=== PATIENT | female | born 1970 | race Caucasian/White ===

== ENCOUNTER 2017-10-03 06:26 | Emergency (ER) | payer OTHER, MEDICAID ==
[~2017-10-03] VITALS: Ht 152.4 cm; Wt 83.0 kg
[~2017-10-03 06:26] MED LIST: ACET325T14 PO; ALLERGY MED PO; AMBR5TAB3 PO; MULT-516 PO; OMEG-14 PO; OMEP-110 PO; POTA10TA11 PO; SPIR25TA PO; TADA20TA33 PO; TORS20TA PO
[2017-10-03] MEDS ORDERED: SODIUM CHLORIDE FLUSH 10ML SYR IVF ONE (07:30)
[2017-10-03 07:31] LABS: CULTURE INDICATED? NO; MICROSCOPIC NOT IND
[2017-10-03 07:51] LABS: BASOPHILS # (AUTO) 0.08 x10^3/uL (0-0.1); BASOPHILS % (AUTO) 1 % (0-1); EOSINOPHILS # (AUTO) 0.15 x10^3/uL (0-0.4); EOSINOPHILS % (AUTO) 3 % (1-7); LYMPHOCYTES # (AUTO) 2.28 x10^3/uL (1-3.4); LYMPHOCYTES % (AUTO) 37 % (22-44); MD NO; MEAN CORPUSCULAR HEMOGLOBIN 28.5 pg (27.0-34.8); MEAN CORPUSCULAR HGB CONC 33.1 g/dL (32.4-35.8); MEAN CORPUSCULAR VOLUME 86.1 fL (80-100); MEAN PLATELET VOLUME 7.4 fL (7.4-10.4); MONOCYTES # (AUTO) 0.37 x10^3/uL (0.2-0.8); MONOCYTES % (AUTO) 6 % (2-9); NEUTROPHILS # (AUTO) 3.37 x10^3/uL (1.8-6.8); NEUTROPHILS % (AUTO) 54 % (42-75); PLATELET COUNT 186 x10^3/uL (130-400); RED BLOOD COUNT 4.85 x10^6/uL (3.82-5.3); RED CELL DISTRIBUTION WIDTH 15.5 % (9.6-15.2)
[2017-10-03 08:02] LABS: ALBUMIN 3.9 g/dL (3.4-5.0); ANION GAP 6 mmol/L (5-15); CALCIUM 8.8 mg/dL (8.5-10.1); CHLORIDE 109 mmol/L (98-107)
[2017-10-03 08:07] LABS: ALANINE AMINOTRANSFERASE 20 U/L (12-78); ALKALINE PHOSPHATASE 48 U/L (45-117); BILIRUBIN,TOTAL 0.4 mg/dL (0.2-1.0); CREATININE 0.63 mg/dL (0.55-1.02); FREE T4 (FREE THYROXINE) 1.02 ng/dL (0.76-1.46); TOTAL PROTEIN 7.7 g/dL (6.4-8.2); TROPONIN I 0.027 ng/mL (0.000-0.045)
[2017-10-03 10:51] VITALS: BP 99/55
== END 2017-10-03 10:56 | disposition home or self-care (01) ==
LOC: ED 09:27
DX: R00.2 Palpitations (principal); J18.0 Bronchopneumonia, unspecified organism; I11.0 Hypertensive heart disease with heart failure; I50.9 Heart failure, unspecified; I27.20 Pulmonary hypertension, unspecified
CPT/HCPCS: 36415; 71045; 80053; 81003; 83735; 83880; 84439; 84443; 84484; 85025; 93005; 99285

== ENCOUNTER → 2019-08-30 | Outpatient (CLI) | payer OTHER, MEDICAID ==
[~2019-08-30] MED LIST changes: +AMBR10TA3 PO; +ASCO1CAP2 PO; +CO Q PO; +MAGN400O7 PO; +POLY119P3 PO; +PSYL1CAP5 PO; +TADA20TA47 PO; +TURMERIC PO; +VITA1CAP5 PO; +[UNRECOGNIZED DRUG - OTHER] PO
[2019-08-30 16:30] LABS: BASOPHILS # (AUTO) 0.03 x10^3/uL (0-0.1); BASOPHILS % (AUTO) 1 % (0-1); EOSINOPHILS # (AUTO) 0.11 x10^3/uL (0-0.4); EOSINOPHILS % (AUTO) 2 % (1-7); LYMPHOCYTES # (AUTO) 1.96 x10^3/uL (1-3.4); LYMPHOCYTES % (AUTO) 32 % (22-44); MD NO; MEAN CORPUSCULAR HEMOGLOBIN 27.5 pg (27.0-34.8); MEAN CORPUSCULAR HGB CONC 31.8 g/dL (32.4-35.8); MEAN CORPUSCULAR VOLUME 86.3 fL (80-100); MEAN PLATELET VOLUME 7.4 fL (7.4-10.4); MONOCYTES # (AUTO) 0.41 x10^3/uL (0.2-0.8); MONOCYTES % (AUTO) 7 % (2-9); NEUTROPHILS # (AUTO) 3.72 x10^3/uL (1.8-6.8); NEUTROPHILS % (AUTO) 60 % (42-75); PLATELET COUNT 210 x10^3/uL (130-400); RED BLOOD COUNT 5.02 x10^6/uL (3.82-5.3); RED CELL DISTRIBUTION WIDTH 17.1 % (9.6-15.2)
[2019-08-30 16:37] LABS: MICROSCOPIC AUTO
[2019-08-30 16:41] LABS: CULTURE INDICATED? YES
[2019-08-30 16:41] LABS: ALANINE AMINOTRANSFERASE 30 U/L (12-78); ALBUMIN 3.9 g/dL (3.4-5.0); ANION GAP 4 mmol/L (5-15); CALCIUM 9.1 mg/dL (8.5-10.1); CHLORIDE 107 mmol/L (98-107); CREATININE 0.76 mg/dL (0.55-1.02)
[2019-08-30 16:44] LABS: ALKALINE PHOSPHATASE 65 U/L (45-117); BILIRUBIN,TOTAL 0.4 mg/dL (0.2-1.0); TOTAL PROTEIN 7.9 g/dL (6.4-8.2)
== END | disposition home or self-care (01) ==
LOC: STAR 15:16
PROVIDERS: ATTEND Obstetrics & Gynecology
DX: Z01.818 Encounter for other preprocedural examination (principal); N83.209 Unspecified ovarian cyst, unspecified side; R10.2 Pelvic and perineal pain; I45.2 Bifascicular block
CPT/HCPCS: 36415; 80053; 81001; 85025; 87086; 93005

== ENCOUNTER 2019-09-06 07:57 | Inpatient (IN) | payer OTHER, MEDICAID ==
[~2019-09-06] VITALS: Ht 152.4 cm; Wt 92.0 kg
[~2019-09-06 07:57] MED LIST changes: +BUPIVACAINE/PF 0.25% ONE; +EPINEPHRINE 1 MG/ML, 1ML ONE; +FENTANYL PF 250 MCG/5ML ONE; +FLUORESCEIN SODIUM 500 MG/5 ML ONE; +MIDAZOLAM 1 MG/ML, 2ML ONE; +VASOPRESSIN 20 UNIT/ML, 1ML ONE
[2019-09-06] MEDS ORDERED: LACTATED RINGERS 1,000 ML IV SCH (08:41)
[2019-09-06] MEDS ORDERED: MEPERIDINE/PF 100 MG/ML ONE (08:44)
[2019-09-06] MEDS ORDERED: PROPOFOL 10 MG/ML, 20ML ONE (08:46)
[2019-09-06] MEDS ORDERED: LIDOCAINE-MPF 2% ,5ML ONE (08:46)
[2019-09-06] MEDS ORDERED: ROCURONIUM 10MG/ML,5ML ONE ×2 (08:46→12:37)
[2019-09-06] MEDS ORDERED: SUGAMMADEX 200 MG/2 ML IVPush ONE (08:46)
[2019-09-06] MEDS ORDERED: DEXAMETHASONE 4 MG/ML, 1ML ONE (08:46)
[2019-09-06] MEDS ORDERED: ONDANSETRON 2MG/ML, 2ML ONE (08:46)
[2019-09-06 08:55] VITALS: BP 96/62
[2019-09-06 09:00] LABS: HCG UR SG 1.023 (1.003-1.030)
[2019-09-06] MEDS ORDERED: MILRINONE 1 MG/ML, 10ML IV ONE (10:58)
[2019-09-06] MEDS ORDERED: NOREPINEPHRINE 1 MG/ML, 4ML ONE (10:59)
[2019-09-06] MEDS ORDERED: PHENYLEPHRINE 10 MG/ML ONE (11:12)
[2019-09-06] MEDS ORDERED: CEFOTETAN 1 GM ONE (11:12)
[2019-09-06] MEDS ORDERED: VASOPRESSIN 20 UNIT/ML, 1ML ONE ×2 (12:08→12:35)
[2019-09-06] MEDS ORDERED: FENTANYL PF 100 MCG/2ML IV PRN (12:30)
[2019-09-06] MEDS ORDERED: HYDROmorphone 2 MG/ML, 1ML IVPush PRN ×2 (12:30→16:00)
[2019-09-06] MEDS ORDERED: MEPERIDINE/PF 25MG/ML,1ML IVPush PRN (12:30)
[2019-09-06] MEDS ORDERED: OXYcodone 5 MG/5 ML ORAL.SOL UDC PO PRN ×3 (12:30→18:00)
[2019-09-06] MEDS ORDERED: PROMETHAZINE 25 MG/ML, 1ML IV PRN (12:30)
[2019-09-06] MEDS ORDERED: GLYCOPYRROLATE 0.2MG/1ML, 5ML ONE (12:45)
[2019-09-06] MEDS ORDERED: PROMETHAZINE 25 MG/ML, 1ML ONE (16:09)
[2019-09-06] MEDS ORDERED: HYDROmorphone 1 MG/ML, 1ML INJ ONE (16:11)
[2019-09-06] MEDS ORDERED: ONDANSETRON 2MG/ML, 2ML IV PRN (18:00)
[2019-09-06] MEDS ORDERED: ACETAMINOPHEN 650 MG SUPP PR PRN (18:00)
[2019-09-06 19:46] VITALS: BP 106/53
[2019-09-06] MEDS: SIMETHICONE 80 MG CHEW TAB PO SCH (20:24)
[2019-09-06] MEDS: DOCUSATE 100 MG CAPSULE PO SCH (20:24)
[2019-09-06] MEDS: D5%-0.45NACL+KCL 20MEQ 1,000 ML IV SCH (20:25)
[2019-09-06] MEDS: ACETAMINOPHEN 325 MG TABLET PO PRN (20:28)
[2019-09-06] MEDS ORDERED: ZOLPIDEM 5MG TABLET PO PRN (21:00)
[2019-09-06 21:19] VITALS: BP_SYST 79; BP_DIAS 40; BP_DIAS 44
[2019-09-06 21:40] VITALS: BP 89/44
[2019-09-06] MEDS ORDERED: SODIUM CHLORIDE 0.9% 1,000 ML IV SCH ×2 (22:00→22:06)
[2019-09-06 22:40] LABS: BASOPHILS # (AUTO) 0.01 x10^3/uL (0-0.1); BASOPHILS % (AUTO) 0 % (0-1); EOSINOPHILS % (AUTO) 0 % (1-7); LYMPHOCYTES # (AUTO) 0.56 x10^3/uL (1-3.4); LYMPHOCYTES % (AUTO) 5 % (22-44); MD NO; MEAN CORPUSCULAR HEMOGLOBIN 27.9 pg (27.0-34.8); MEAN CORPUSCULAR HGB CONC 32.5 g/dL (32.4-35.8); MEAN CORPUSCULAR VOLUME 85.8 fL (80-100); MEAN PLATELET VOLUME 7.7 fL (7.4-10.4); MONOCYTES # (AUTO) 0.25 x10^3/uL (0.2-0.8); MONOCYTES % (AUTO) 2 % (2-9); NEUTROPHILS # (AUTO) 10.54 x10^3/uL (1.8-6.8); NEUTROPHILS % (AUTO) 93 % (42-75); PLATELET COUNT 168 x10^3/uL (130-400); RED CELL DISTRIBUTION WIDTH 17.2 % (9.6-15.2)
[2019-09-06 22:47] VITALS: BP 101/56
[2019-09-06] MEDS ORDERED: CEFOTETAN PMX 1GM/50ML 50 ML IVPB ONE (23:30)
[2019-09-07] VITALS (8 sets, daily range): BP systolic 85–103; BP diastolic 42–61
[2019-09-07] MEDS ORDERED: SODIUM CHLORIDE 0.9% 1,000 ML IV SCH (03:30)
[2019-09-07 04:20] LABS: BASOPHILS % (AUTO) 0 % (0-1); EOSINOPHILS % (AUTO) 0 % (1-7); LYMPHOCYTES # (AUTO) 0.73 x10^3/uL (1-3.4); LYMPHOCYTES % (AUTO) 6 % (22-44); MD NO; MEAN CORPUSCULAR HEMOGLOBIN 27.4 pg (27.0-34.8); MEAN CORPUSCULAR HGB CONC 32.2 g/dL (32.4-35.8); MEAN PLATELET VOLUME 7.7 fL (7.4-10.4); MONOCYTES # (AUTO) 0.74 x10^3/uL (0.2-0.8); MONOCYTES % (AUTO) 6 % (2-9); NEUTROPHILS % (AUTO) 88 % (42-75); PLATELET COUNT 173 x10^3/uL (130-400); RED BLOOD COUNT 4.18 x10^6/uL (3.82-5.3); RED CELL DISTRIBUTION WIDTH 17.3 % (9.6-15.2)
[2019-09-07] MEDS ORDERED: SODIUM CHLORIDE 0.9% 1,000ML IVBOLUS ONE (05:30)
[2019-09-07 05:48] LABS: FREE T4 (FREE THYROXINE) 1.14 ng/dL (0.76-1.46)
[2019-09-07 06:54] LABS: MICROSCOPIC INDICATED
[2019-09-07] MEDS: D5%-0.45NACL+KCL 20MEQ 1,000 ML IV SCH ×2 (07:10→16:47)
[2019-09-07 08:14] LABS: ALBUMIN 2.9 g/dL (3.4-5.0); ANION GAP 6 mmol/L (5-15); CALCIUM 7.6 mg/dL (8.5-10.1); CHLORIDE 112 mmol/L (98-107)
[2019-09-07 08:19] LABS: ALANINE AMINOTRANSFERASE 22 U/L (12-78); ALKALINE PHOSPHATASE 41 U/L (45-117); BILIRUBIN,TOTAL 0.4 mg/dL (0.2-1.0); CREATININE 0.72 mg/dL (0.55-1.02); TOTAL PROTEIN 5.7 g/dL (6.4-8.2)
[2019-09-07] MEDS: SIMETHICONE 80 MG CHEW TAB PO SCH ×3 (08:42→20:47)
[2019-09-07] MEDS: DOCUSATE 100 MG CAPSULE PO SCH ×2 (08:42→20:47)
[2019-09-07] MEDS: TORSEMIDE 20 MG TABLET PO SCH (08:42)
[2019-09-07] MEDS: ACETAMINOPHEN 325 MG TABLET PO PRN (08:42)
[2019-09-07 13:36] LABS: BASOPHILS # (AUTO) 0.01 x10^3/uL (0-0.1); BASOPHILS % (AUTO) 0 % (0-1); EOSINOPHILS # (AUTO) 0.01 x10^3/uL (0-0.4); EOSINOPHILS % (AUTO) 0 % (1-7); LYMPHOCYTES # (AUTO) 1.24 x10^3/uL (1-3.4); LYMPHOCYTES % (AUTO) 10 % (22-44); MD NO; MEAN CORPUSCULAR HEMOGLOBIN 27.4 pg (27.0-34.8); MEAN CORPUSCULAR HGB CONC 32.2 g/dL (32.4-35.8); MEAN CORPUSCULAR VOLUME 85.1 fL (80-100); MEAN PLATELET VOLUME 7.4 fL (7.4-10.4); MONOCYTES # (AUTO) 0.62 x10^3/uL (0.2-0.8); MONOCYTES % (AUTO) 5 % (2-9); NEUTROPHILS # (AUTO) 11.01 x10^3/uL (1.8-6.8); NEUTROPHILS % (AUTO) 86 % (42-75); PLATELET COUNT 188 x10^3/uL (130-400); RED CELL DISTRIBUTION WIDTH 17.2 % (9.6-15.2)
[2019-09-07] MEDS: OXYcodone/APAP 5/325MG TABLET PO PRN (17:36)
[2019-09-08 01:33] VITALS: BP 100/53
[2019-09-08 05:42] LABS: ANION GAP 6 mmol/L (5-15); CALCIUM 8.3 mg/dL (8.5-10.1); CHLORIDE 107 mmol/L (98-107)
[2019-09-08 05:43] LABS: BASOPHILS # (AUTO) 0.02 x10^3/uL (0-0.1); BASOPHILS % (AUTO) 0 % (0-1); EOSINOPHILS # (AUTO) 0.09 x10^3/uL (0-0.4); EOSINOPHILS % (AUTO) 1 % (1-7); LYMPHOCYTES # (AUTO) 1.43 x10^3/uL (1-3.4); LYMPHOCYTES % (AUTO) 13 % (22-44); MD NO; MEAN CORPUSCULAR HEMOGLOBIN 27.7 pg (27.0-34.8); MEAN CORPUSCULAR HGB CONC 32.2 g/dL (32.4-35.8); MEAN PLATELET VOLUME 7.8 fL (7.4-10.4); MONOCYTES # (AUTO) 0.62 x10^3/uL (0.2-0.8); MONOCYTES % (AUTO) 6 % (2-9); NEUTROPHILS # (AUTO) 8.81 x10^3/uL (1.8-6.8); NEUTROPHILS % (AUTO) 80 % (42-75); PLATELET COUNT 169 x10^3/uL (130-400); RED BLOOD COUNT 4.23 x10^6/uL (3.82-5.3); RED CELL DISTRIBUTION WIDTH 17.3 % (9.6-15.2)
[2019-09-08 05:47] LABS: ALANINE AMINOTRANSFERASE 19 U/L (12-78); ALKALINE PHOSPHATASE 43 U/L (45-117); BILIRUBIN,TOTAL 0.5 mg/dL (0.2-1.0); CREATININE 0.66 mg/dL (0.55-1.02); TOTAL PROTEIN 6.6 g/dL (6.4-8.2)
[2019-09-08] MEDS ORDERED: OMNIPAQUE 350 MG/ML, 100ML BOTTLE ONE (07:12)
[2019-09-08] MEDS: D5%-0.45NACL+KCL 20MEQ 1,000 ML IV SCH (07:20)
[2019-09-08 07:42] VITALS: BP 101/66
[2019-09-08] MEDS: DOCUSATE 100 MG CAPSULE PO SCH ×2 (08:17→20:56)
[2019-09-08] MEDS: TORSEMIDE 20 MG TABLET PO SCH (08:17)
[2019-09-08] MEDS: SIMETHICONE 80 MG CHEW TAB PO SCH ×3 (08:17→20:56)
[2019-09-08] MEDS ORDERED: POTASSIUM CHLORIDE 20 MEQ TAB.ER.PRT PO SCH (08:30)
[2019-09-08 12:45] VITALS: BP 91/55
[2019-09-08] MEDS: OXYcodone/APAP 5/325MG TABLET PO PRN (12:46)
[2019-09-08 19:01] VITALS: BP 98/65
[2019-09-09 00:28] VITALS: BP 96/60
[2019-09-09 06:28] LABS: BASOPHILS # (AUTO) 0.08 x10^3/uL (0-0.1); BASOPHILS % (AUTO) 1 % (0-1); EOSINOPHILS # (AUTO) 0.08 x10^3/uL (0-0.4); EOSINOPHILS % (AUTO) 1 % (1-7); LYMPHOCYTES % (AUTO) 21 % (22-44); MD NO; MEAN CORPUSCULAR HEMOGLOBIN 27.6 pg (27.0-34.8); MEAN CORPUSCULAR VOLUME 86.3 fL (80-100); MEAN PLATELET VOLUME 7.9 fL (7.4-10.4); MONOCYTES # (AUTO) 0.56 x10^3/uL (0.2-0.8); MONOCYTES % (AUTO) 6 % (2-9); NEUTROPHILS # (AUTO) 6.97 x10^3/uL (1.8-6.8); NEUTROPHILS % (AUTO) 71 % (42-75); PLATELET COUNT 163 x10^3/uL (130-400); RED BLOOD COUNT 4.38 x10^6/uL (3.82-5.3); RED CELL DISTRIBUTION WIDTH 17.4 % (9.6-15.2)
[2019-09-09 06:36] LABS: CHLORIDE 104 mmol/L (98-107)
[2019-09-09 06:41] LABS: ALANINE AMINOTRANSFERASE 20 U/L (12-78); ALKALINE PHOSPHATASE 48 U/L (45-117); ANION GAP 5 mmol/L (5-15); BILIRUBIN,TOTAL 0.6 mg/dL (0.2-1.0); CALCIUM 8.7 mg/dL (8.5-10.1); CREATININE 0.57 mg/dL (0.55-1.02); TOTAL PROTEIN 6.9 g/dL (6.4-8.2)
[2019-09-09 08:46] VITALS: BP 106/69
[2019-09-09] MEDS: POTASSIUM CHLORIDE 20 MEQ TAB.ER.PRT PO SCH ×2 (08:50→08:56)
[2019-09-09] MEDS: SIMETHICONE 80 MG CHEW TAB PO SCH (08:50)
[2019-09-09] MEDS: DOCUSATE 100 MG CAPSULE PO SCH (08:51)
[2019-09-09] MEDS: TORSEMIDE 20 MG TABLET PO SCH (08:51)
[2019-09-09 14:12] VITALS: BP 97/65
[2019-09-09] MEDS: OXYcodone/APAP 5/325MG TABLET PO PRN (14:55)
== END 2019-09-09 16:29 | disposition home or self-care (01) | DRG 742 ==
LOC: OUT 07:57 → 4NE 17:33 → OUT 17:36 → 4NE 17:36 → 5SO 09-07 04:16 → DCLOUNGE 09-09 16:10
PROVIDERS: ADMIT Obstetrics & Gynecology; ATTEND Obstetrics & Gynecology
PROC: 0DQ80ZZ Repair Small Intestine, Open Approach (ICD-10-PCS; 2019-09-06)
PROC: 0UT70ZZ Resection of Bilateral Fallopian Tubes, Open Approach (ICD-10-PCS; 2019-09-06)
PROC: 0UT00ZZ Resection of Right Ovary, Open Approach (ICD-10-PCS; 2019-09-06)
PROC: 0DNE0ZZ Release Large Intestine, Open Approach (ICD-10-PCS; 2019-09-06)
PROC: 0DNW0ZZ Release Peritoneum, Open Approach (ICD-10-PCS; 2019-09-06)
PROC: 0UB10ZZ Excision of Left Ovary, Open Approach (ICD-10-PCS; 2019-09-06)
PROC: 0TJB8ZZ Inspection of Bladder, Via Natural or Artificial Opening Endoscopic (ICD-10-PCS; 2019-09-06)
PROC: 03HY32Z Insertion of Monitoring Device into Upper Artery, Percutaneous Approach (ICD-10-PCS; 2019-09-06)
PROC: 0UT90ZZ Resection of Uterus, Open Approach (ICD-10-PCS; principal; 2019-09-06 10:00)
DX: N80.1 Endometriosis of ovary (principal); S36.408A Unspecified injury of other part of small intestine, initial encounter; N83.299 Other ovarian cyst, unspecified side; E66.01 Morbid (severe) obesity due to excess calories; E87.6 Hypokalemia; Z68.39 Body mass index [BMI] 39.0-39.9, adult; G47.33 Obstructive sleep apnea (adult) (pediatric); I11.0 Hypertensive heart disease with heart failure; I27.20 Pulmonary hypertension, unspecified; K21.9 Gastro-esophageal reflux disease without esophagitis; I50.9 Heart failure, unspecified; I95.2 Hypotension due to drugs; D72.829 Elevated white blood cell count, unspecified; K66.0 Peritoneal adhesions (postprocedural) (postinfection); N93.9 Abnormal uterine and vaginal bleeding, unspecified; G47.30 Sleep apnea, unspecified; Z53.31 Laparoscopic surgical procedure converted to open procedure; Z87.891 Personal history of nicotine dependence; Z90.710 Acquired absence of both cervix and uterus; Z79.899 Other long term (current) drug therapy; Y65.8 Other specified misadventures during surgical and medical care; Y92.234 Operating room of hospital as the place of occurrence of the external cause; T50.995A Adverse effect of other drugs, medicaments and biological substances, initial encounter; Y93.89 Activity, other specified; Y99.8 Other external cause status
CPT/HCPCS: 36415; 74018; 84145; J3490; 74177; 80053; 81001; 81025; 82533; 82962; 84439; 84443; 85025; 86850; 86900; 88307; 93306; G0378; J0171; J1100; J1170; J2250; J2260; J2405; J2550; J2704; J3010; Q9967; J2175; J2370; J3480; J7030; J7120

== ENCOUNTER → 2020-05-23 | Outpatient (CLI) | payer OTHER, MEDICAID ==
[~2020-05-23] MED LIST changes: -BUPIVACAINE/PF 0.25% ONE; -EPINEPHRINE 1 MG/ML, 1ML ONE; -FENTANYL PF 250 MCG/5ML ONE; -FLUORESCEIN SODIUM 500 MG/5 ML ONE; -MIDAZOLAM 1 MG/ML, 2ML ONE; +POLY119P PO; -POLY119P3 PO; -VASOPRESSIN 20 UNIT/ML, 1ML ONE
== END | disposition home or self-care (01) ==
LOC: MERGE 03-19 13:15 → CFH 14:30
PROVIDERS: ATTEND Nurse Practitioner Family
DX: R91.8 Other nonspecific abnormal finding of lung field (principal)
CPT/HCPCS: 71250

== ENCOUNTER 2020-06-14 13:29 | Day surgery (SDC) | payer OTHER, MEDICAID ==
[~2020-06-14] VITALS: Ht 152.4 cm; Wt 86.4 kg
[2020-06-14] MEDS ORDERED: DIPHENHYDRAMINE 50 MG/ML, 1ML IVPush ONE (15:00)
[2020-06-14 15:03] VITALS: BP 120/59
[2020-06-14] MEDS ORDERED: MULT-257 PO (15:22)
[2020-06-14] MEDS ORDERED: POTA10TA12 PO (15:22)
[2020-06-14] MEDS ORDERED: AMBR10TA3 PO (15:22)
[2020-06-14] MEDS ORDERED: BENZ-17 PO (15:22)
[2020-06-14] MEDS ORDERED: TORS20TA2 PO (15:22)
[2020-06-14] MEDS ORDERED: FLUT9.9S NS (15:22)
[2020-06-14] MEDS ORDERED: OMEP-110 PO (15:22)
[2020-06-14] MEDS ORDERED: SPIR25TA5 PO (15:22)
[2020-06-14] MEDS ORDERED: TADA20TA33 PO (15:22)
[2020-06-14 15:25] LABS: BASOPHILS # (AUTO) 0.03 x10^3/uL (0-0.1); BASOPHILS % (AUTO) 0 % (0-1); EOSINOPHILS # (AUTO) 0.13 x10^3/uL (0-0.4); EOSINOPHILS % (AUTO) 2 % (1-7); LYMPHOCYTES # (AUTO) 2.61 x10^3/uL (1-3.4); LYMPHOCYTES % (AUTO) 39 % (22-44); MD NO; MEAN CORPUSCULAR HEMOGLOBIN 28.1 pg (27.0-34.8); MEAN CORPUSCULAR HGB CONC 32.4 g/dL (32.4-35.8); MEAN PLATELET VOLUME 7.8 fL (7.4-10.4); MONOCYTES # (AUTO) 0.46 x10^3/uL (0.2-0.8); MONOCYTES % (AUTO) 7 % (2-9); NEUTROPHILS # (AUTO) 3.47 x10^3/uL (1.8-6.8); NEUTROPHILS % (AUTO) 52 % (42-75); PLATELET COUNT 167 x10^3/uL (130-400); RED BLOOD COUNT 5.37 x10^6/uL (3.82-5.3); RED CELL DISTRIBUTION WIDTH 15.3 % (9.6-15.2)
[2020-06-14 15:30] LABS: ANION GAP 6 mmol/L (5-15); CALCIUM 9.3 mg/dL (8.5-10.1); CHLORIDE 106 mmol/L (98-107); CREATININE 0.71 mg/dL (0.55-1.02)
[2020-06-14] MEDS ORDERED: PLEASE ENTER HEIGHT AND WEIGHT MC SCH (15:30)
[2020-06-14 15:32] LABS: INTERNATIONAL NORMALIZED RATIO 1.05 (0.93-1.1); PROTHROMBIN TIME 10.8 Seconds (9.6-11.5)
[2020-06-14] MEDS ORDERED: LIDOCAINE-MPF 2%, 2ML ONE (16:12)
[2020-06-14] MEDS ORDERED: MIDAZOLAM 1 MG/ML, 2ML ONE (16:12)
[2020-06-14] MEDS ORDERED: FENTANYL PF 100 MCG/2ML ONE (16:12)
[2020-06-14] MEDS ORDERED: DIPHENHYDRAMINE 50 MG/ML, 1ML ONE (16:30)
[2020-06-14] MEDS ORDERED: LIDOCAINE-MPF 1%, 5ML ONE (16:34)
== END 2020-06-14 17:37 | disposition home or self-care (01) ==
LOC: CACL 13:29
PROVIDERS: ATTEND Internal Medicine Cardiovascular Disease
DX: I27.20 Pulmonary hypertension, unspecified (principal); I10 Essential (primary) hypertension; G47.30 Sleep apnea, unspecified; R06.02 Shortness of breath; E66.9 Obesity, unspecified; Z68.39 Body mass index [BMI] 39.0-39.9, adult; Z79.899 Other long term (current) drug therapy; Z90.710 Acquired absence of both cervix and uterus
CPT/HCPCS: 36415; 80048; 85025; 85610; 85730; 93451; C1894; J1200; J2250; J3010

== ENCOUNTER 2020-12-28 13:30 | Day surgery (SDC) | payer MEDICAID ==
[2020-12-25 10:09] LABS: ALANINE AMINOTRANSFERASE 18 U/L (12-78); ALBUMIN 4.2 g/dL (3.4-5.0); ANION GAP 6 mmol/L (5-15); CHLORIDE 107 mmol/L (98-107); CREATININE 0.58 mg/dL (0.55-1.02)
[2020-12-25 10:11] LABS: ALKALINE PHOSPHATASE 69 U/L (45-117); BILIRUBIN,TOTAL 0.6 mg/dL (0.2-1.0); TOTAL PROTEIN 8.2 g/dL (6.4-8.2)
[2020-12-25 10:12] LABS: INTERNATIONAL NORMALIZED RATIO 1.05 (0.93-1.1); PROTHROMBIN TIME 11.2 Seconds (9.6-11.5)
[2020-12-25 13:56] LABS: BASOPHILS % (AUTO) 1 % (0-1); EOSINOPHILS % (AUTO) 1 % (1-7); LYMPHOCYTES % (AUTO) 41 % (22-44); MEAN CORPUSCULAR HEMOGLOBIN 29.7 pg (27.0-34.8); MEAN CORPUSCULAR HGB CONC 33.6 g/dL (32.4-35.8); MEAN PLATELET VOLUME 7.4 fL (7.4-10.4); MONOCYTES % (AUTO) 7 % (2-9); NEUTROPHILS % (AUTO) 50 % (42-75); PLATELET COUNT 184 x10^3/uL (130-400); RED BLOOD COUNT 5.12 x10^6/uL (3.82-5.3); RED CELL DISTRIBUTION WIDTH 14.5 % (9.6-15.2)
[2020-12-25 13:57] LABS: MD NO
[2020-12-25 17:22] LABS: HCT (SEDRATE) 45.1 % (34.6-47.8)
[~2020-12-28] VITALS: Ht 152.4 cm; Wt 94.7 kg
[~2020-12-28 13:30] MED LIST changes: +ASCO500T8 PO; +ATOR20TA37 PO; +BENZ-17 PO; +CALC625T23 PO; +DOCU-145 PO; +FLUT9.9S NS; +L.AC1CAP6 PO; +MULT-257 PO; +POTA10TA12 PO; +PROP10DR3 EACHEYE; +SPIR25TA5 PO; +TORS20TA2 PO; +[UNRECOGNIZED DRUG - CODE] INH
[2020-12-28] MEDS ORDERED: CHLORHEXIDINE 15 ML UDC PO ONE (14:00)
[2020-12-28] MEDS ORDERED: LACTATED RINGERS 1,000 ML IV SCH (14:00)
[2020-12-28 14:06] VITALS: BP 111/65
[2020-12-28] MEDS ORDERED: FENTANYL PF 100 MCG/2ML ONE ×2 (15:18)
[2020-12-28] MEDS ORDERED: MIDAZOLAM 1 MG/ML, 2ML ONE (15:18)
[2020-12-28] MEDS ORDERED: PROPOFOL 10 MG/ML, 20ML ONE (15:29)
[2020-12-28] MEDS ORDERED: ONDANSETRON 2MG/ML, 2ML ONE (15:29)
[2020-12-28] MEDS ORDERED: DEXAMETHASONE 4 MG/ML, 1ML ONE (15:29)
[2020-12-28] MEDS ORDERED: CEFAZOLIN 1,000 MG ONE (15:29)
[2020-12-28] MEDS ORDERED: VASOPRESSIN 20 UNIT/ML, 1ML ONE (16:10)
[2020-12-28] MEDS ORDERED: BUPIVACAINE/PF 0.5% ONE (16:25)
[2020-12-28] MEDS ORDERED: HYDROmorphone 1 MG/ML, 1ML INJ IVPush PRN (16:30)
[2020-12-28] MEDS ORDERED: MEPERIDINE/PF 25MG/0.5ML IVPush PRN (16:30)
[2020-12-28] MEDS ORDERED: PROMETHAZINE 25 MG/ML, 1ML IVPush PRN (16:30)
[2020-12-28] MEDS ORDERED: FENTANYL PF 100 MCG/2ML IV PRN (16:30)
[2020-12-28] MEDS ORDERED: HALOPERIDOL 5 MG/ML IV PRN (16:30)
[2020-12-28] MEDS ORDERED: morphine SULFATE 10 MG/ML, 1ML IVPush PRN (16:30)
[2020-12-28] MEDS ORDERED: OXYcodone 5 MG/5 ML ORAL.SOL UDC PO PRN (16:30)
[2020-12-28] MEDS ORDERED: hydrALAzine 20 MG/ML, 1ML IV PRN (16:30)
[2020-12-28] MEDS ORDERED: ACETAMINOPHEN 325 MG TABLET PO PRN (16:30)
[2020-12-28] MEDS ORDERED: LABETALOL 5MG/ML, 20ML IV PRN (16:30)
== END 2020-12-28 19:30 | disposition home or self-care (01) ==
LOC: OR 13:30 → ORIP 19:20 → OR 19:30
PROVIDERS: ATTEND Orthopaedic Surgery Orthopaedic Surgery of the Spine
DX: G56.01 Carpal tunnel syndrome, right upper limb (principal); I10 Essential (primary) hypertension; E78.5 Hyperlipidemia, unspecified; K21.9 Gastro-esophageal reflux disease without esophagitis; G47.33 Obstructive sleep apnea (adult) (pediatric); I27.20 Pulmonary hypertension, unspecified; Z20.822 Contact with and (suspected) exposure to COVID-19; Z79.01 Long term (current) use of anticoagulants; Z79.899 Other long term (current) drug therapy; Z91.041 Radiographic dye allergy status
CPT/HCPCS: 36415; 64721; 71046; 80053; 83036; 85025; 85610; 85651; 85730; 93005; J0690; J1100; J2250; J2405; J2704; J3010; J7120; U0003